=== PATIENT | female | born 1950 | race Two or more races ===

== ENCOUNTER 2022-09-04 18:21 | Emergency (ER) | payer SELFPAY ==
[~2022-09-04] VITALS: Ht 157.5 cm; Wt 73.0 kg
[2022-09-04 19:48] VITALS: BP 196/83
[2022-09-05] MEDS ORDERED: MELO7.5T9 PO (15:29)
== END 2022-09-04 23:50 | disposition left against medical advice (07) ==
LOC: ER 18:21
DX: M79.662 Pain in left lower leg (principal); Z53.21 Procedure and treatment not carried out due to patient leaving prior to being seen by health care provider

== ENCOUNTER 2022-09-05 12:55 | Emergency (ER) | payer SELFPAY ==
[~2022-09-05] VITALS: Ht 165.1 cm; Wt 80.0 kg
[2022-09-05 14:58] VITALS: BP 170/86
[2022-09-05] MEDS ORDERED: MELO7.5T9 PO (15:29)
== END 2022-09-05 15:34 | disposition home or self-care (01) ==
LOC: ER 12:55
DX: M17.12 Unilateral primary osteoarthritis, left knee (principal); I10 Essential (primary) hypertension; Z88.0 Allergy status to penicillin
CPT/HCPCS: 73562; 93971